=== PATIENT | female | born 1975 | race Caucasian/White ===

== ENCOUNTER 2016-09-24 16:55 | Observation (INO) ==
[2016-09-24] MEDS ORDERED: *HR* HYDROmorphone (PF) 1 MG/ML SYRINGE IVP PRN (17:44)
[2016-09-24] MEDS ORDERED: Ketorolac 15 MG/ML VIAL IVP PRN (17:44)
[2016-09-24] MEDS ORDERED: Naloxone 0.4 MG/ML INJ IVP PRN (17:44)
[2016-09-24] MEDS ORDERED: *HR* Promethazine 25 MG/ML VIAL IVP PRN (17:44)
[2016-09-24] MEDS ORDERED: Ondansetron 4 MG/2 ML VIAL IVP PRN (17:44)
[2016-09-24] MEDS: 0.9 % Sodium Chloride 1,000 ML IVC SCH (19:27)
[2016-09-24] MEDS: *HR* Morphine 2 MG/ML SYRINGE IVP PRN ×2 (19:28→22:25)
--- NOTE | 2016-09-24 21:06 | Urology History & Physical ---
Date of Encounter: 09/24/16 Time of Encounter: 21:04 Assessment and Plan (1) Ureteral stone with hydronephrosis Current Visit: Yes Status: Acute pt states her symptoms are severe and necessitate hospital management and surgical intervention. will plan for ureteroscopic stone extraction in AM if she does not pass the stone. pain control tonight. IVF. ABX. History of Present Illness Chief complaint: right flank pain HPI: Ms. Rodas is a 41 year old female with hx of stone. recent severe flank pain. 5 mm distal stone with hydronephrosis. feels "awful". nausea. no fever. Past Med Surg Social Fam HX - Past Medical History Medical history: fibromyalgia, hypertension, kidney stones, other Psychiatric history: anxiety, bipolar, depression - Past Surgical History Surgical History: , cholecystectomy - Social History Smoking Status: Current every day smoker Smokeless Tobacco Status: No Alcohol use: none Drug use: none Medications and Allergies HYDROcodone/Acet 10/325 mg [[place] 10-325 mg] 1 each PO Q6HR PRN #14 tablet 10/20 [Rx] Dicyclomine [Bentyl] 10 mg PO QID PRN #15 capsule 11/13/15 [Rx] Naproxen [Naprosyn] 500 mg PO BID PRN #14 tablet 11/13/15 [Rx] Ondansetron ODT [Zofran ODT] 4 mg SL Q6HR #10 tab.rapdis 11/13/15 [Rx] Phenazopyridine HCl [Pyridium] 200 mg PO TIDAC #9 tab 12/14/15 [Rx] Sulfamethoxazole/Trimeth DS [Bactrim DS] 1 each PO BID #20 tablet 12/14/15 [Rx] Sulfamethoxazole/Trimeth DS [Bactrim DS] 1 each PO DAILY #10 tablet 08/23/16 [Rx ] cephALEXin [Keflex] 500 mg PO BID #14 capsule 08/23/16 [Rx] Ondansetron ODT [Zofran ODT] 4 mg SL Q6HR PRN #12 tab.rapdis 09/23/16 [Rx] Oxycodone HCl/Acetaminophen [Percocet 5-325 mg Tablet] 1 - 2 each PO QID PRN # 20 tablet 09/23/16 [Rx] Tamsulosin [Flomax] 0.4 mg PO DAILY #5 cap.er.24h 09/23/16 [Rx] Allergies No Known Allergies Allergy (Verified 10/20/15 22:42) Review of Systems - Constitutional fatigue, no chills, no fever(s) - EENT Nose, mouth and throat: no dizziness - Cardiovascular no chest pain, no dyspnea - Respiratory no cough - Gastrointestinal abdominal pain, nausea - Genitourinary Genitourinary: flank pain - Musculoskeletal back pain - Integumentary no erythema - Neurological no confusion - Psychiatric anxiety - Hematologic/Lymphatic no easy bleeding - Allergic/Immunologic no throat swelling Exam Initial Vital Signs Temp Pulse Resp BP Pulse Ox 97.6 F 65 18 142/85 96 09/24/16 17:26 09/24/16 17:26 09/24/16 17:26 09/24/16 17:26 09/24/16 17:26 - General physical appearance Present: well developed, moderate pain - Eyes Present: PERRL - ENT Present: normal nares - Neck Present: no masses - Respiratory Present: normal respiratory effort - Cardiovascular Cardiovascular exam IM: RRR - Abdomen Abdomen: Present: soft - Integumentary Present: no rash - Neurologic Present: normal coordination. Absent: disoriented, confused - Musculoskeletal Present: normal gait Urology Results - Labs All other labs normal.
[2016-09-24] MEDS ORDERED: Nicotine 21 MG PATCH.TD24 TD PRN (21:09)
[2016-09-24] MEDS ORDERED: *HR* HYDROmorphone 2 MG/ML SYRINGE IVP PRN (22:30)
[2016-09-24] MEDS ORDERED: Ketorolac 30 MG/ML VIAL IVP ONE (22:30)
[2016-09-25] MEDS: 0.9 % Sodium Chloride 1,000 ML IVC SCH (05:31)
--- NOTE | 2016-09-25 06:05 | Urology Progress Note ---
Date of Encounter: 09/25/16 Time of Encounter: 06:03 - Assessment and Plan (1) Ureteral stone with hydronephrosis Current Visit: Yes Status: Acute Assessment and plan: because of pain overnight and no stone passed in strained urine - proceed with stone extraction Progress Note Narrative: asleep. severe pain overnight. difficult to control despite toradol and dilaudid. better this AM. last urine strained and no stone passed. Objective Initial Vital Signs Temp Pulse Resp BP Pulse Ox 97.6 F 65 18 142/85 96 09/24/16 17:26 09/24/16 17:26 09/24/16 17:26 09/24/16 17:26 09/24/16 17:26 - General physical appearance Present: well developed (asleep) Consult Discharge Plan - Plan Referrals: Parag Torres MD [Primary Care Provider] -
[2016-09-25] MEDS ORDERED: *HR* Rocuronium Bromide 50 MG/5 ML VIAL ONE (07:26)
[2016-09-25] MEDS ORDERED: *HR* Midazolam HCl 2 MG/2 ML VIAL ONE (07:26)
[2016-09-25] MEDS ORDERED: *HR* Succinylcholine 200 MG/10 ML VIAL IVP ONE (07:26)
[2016-09-25] MEDS ORDERED: Lidocaine -MPF 4% 5 ML AMPUL ONE (07:26)
[2016-09-25] MEDS ORDERED: Lidocaine -MPF 2% 2 ML VIAL ONE (07:26)
[2016-09-25] MEDS ORDERED: *HR* FentaNYL (PF) 100 MCG/2 ML VIAL ONE (07:26)
[2016-09-25] MEDS ORDERED: *HR* Propofol 200 MG/20 ML VIAL IVP ONE (07:27)
[2016-09-25] MEDS ORDERED: Ringers Solution, Lactated 1,000 ML IVC SCH ×3 (07:30→09:21)
[2016-09-25] MEDS ORDERED: Albuterol 2.5 MG/3 ML NEBULIZER ONE (07:30)
--- NOTE | 2016-09-25 07:41 | Anesthesia Evaluation PreOp ---
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: Other (anxiety, depression, fibromyalgia) Other Medical History: Diabetes Type II, Other (morbid obesity BMI 46) Anesthesia History: No Prior Anesthetic Complications, Past Anesthesia (csection , cholecystectomy, hysterectomy) Alcohol Use: none Drug use: none Medications and Allergies HYDROcodone/Acet 10/325 mg [[place] 10-325 mg] 1 each PO Q6HR PRN #14 tablet 10/20 [Rx] Dicyclomine [Bentyl] 10 mg PO QID PRN #15 capsule 11/13/15 [Rx] Naproxen [Naprosyn] 500 mg PO BID PRN #14 tablet 11/13/15 [Rx] Ondansetron ODT [Zofran ODT] 4 mg SL Q6HR #10 tab.rapdis 11/13/15 [Rx] Phenazopyridine HCl [Pyridium] 200 mg PO TIDAC #9 tab 12/14/15 [Rx] Sulfamethoxazole/Trimeth DS [Bactrim DS] 1 each PO BID #20 tablet 12/14/15 [Rx] Sulfamethoxazole/Trimeth DS [Bactrim DS] 1 each PO DAILY #10 tablet 08/23/16 [Rx ] cephALEXin [Keflex] 500 mg PO BID #14 capsule 08/23/16 [Rx] Ondansetron ODT [Zofran ODT] 4 mg SL Q6HR PRN #12 tab.rapdis 09/23/16 [Rx] Oxycodone HCl/Acetaminophen [Percocet 5-325 mg Tablet] 1 - 2 each PO QID PRN # 20 tablet 09/23/16 [Rx] Tamsulosin [Flomax] 0.4 mg PO DAILY #5 cap.er.24h 09/23/16 [Rx] Allergies No Known Allergies Allergy (Verified 10/20/15 22:42) - Meds/Allergy Pre-op Review Medications Reviewed: Yes Allergies Reviewed: Yes Beta Blockers on Current Med List: No Anesthesia Results - Labs Laboratory Tests 04/22/15 09/23/16 09/23/16 08:38 14:10 14:10 WBC 11.9 H Hgb 14.9 Hct 44.9 Plt Count 385 PT 12.6 H INR 1.2 APTT 37.8 H Sodium Potassium Chloride Carbon Dioxide BUN Creatinine Glucose Hemoglobin A1c 5.3 09/23/16 14:10 WBC Hgb Hct Plt Count PT INR APTT Sodium 138 Potassium 3.9 Chloride 108 Carbon Dioxide 20 BUN 15 Creatinine 0.85 Glucose 91 Hemoglobin A1c Anesthesia Exam Vital Signs/O2 Sat, Most Current Temp Pulse Resp BP Pulse Ox 97.8 F 71 18 105/75 94 09/25/16 03:58 09/25/16 03:58 09/25/16 03:58 09/25/16 03:58 09/25/16 03:58 Height: 1.55m Weight: 110kg NPO (# of Hours): >8 Pain Scale: 0 Pain Scale Used: Numeric (1 - 10) - HEENT Pupil (Motor): Pupils equal, EOMI Mallampati: III Teeth: Poor dentition Oral Opening: Greater than 3 - FUTURES TRADER LOC: Oriented FUTURES TRADER Motor: Normal RUE, Normal LUE, Normal RLE, Normal LLE, Normal Face FUTURES TRADER Sensory: Normal: RUE, LUE, RLE, LLE, Face - Cardiac Rhythm: Regular - Pulmonary Breath Sounds: bilateral Clear Respiratory Effort: Symmetrical Anesthesia Assess/Plan ASA Score: 3 (HTN, BMI 46, anxiety, depression) Modified [place] Scale for Level of Consciousness: Cooperative, oriented, and tranquil Anesthetic Plan: General (r/b/a discussed, questions answered, consent obtained) Monitoring Plan: Standard Monitors Recovery Plan: PACU
[2016-09-25] MEDS ORDERED: *HR* Meperidine 25 MG/ML SYRINGE IVP PRN (08:08)
[2016-09-25] MEDS ORDERED: Ondansetron 4 MG/2 ML VIAL IVP ONE (08:08)
[2016-09-25] MEDS ORDERED: *HR* Promethazine 25 MG/ML VIAL IVP PRN ×2 (08:08→09:21)
[2016-09-25] MEDS ORDERED: *HR* HYDROmorphone (PF) 1 MG/ML SYRINGE IVP PRN (08:08)
[2016-09-25] MEDS ORDERED: *HR* Labetalol 100 MG/20 ML MDV IVP PRN (08:08)
[2016-09-25] MEDS ORDERED: Neostigmine Methylsulfate 3 MG/3 ML SYRINGE ONE (08:18)
--- NOTE | 2016-09-25 08:36 | Discharge Summary ---
Date of Encounter: 09/25/16 Time of Encounter: 08:32 - Discharge Diagnosis (1) Ureteral stone with hydronephrosis Priority: Primary Status: Resolved Comments: s/p stone extraction - Discharge Medications Prescriptions: HYDROcodone/Acet 10/325 mg [[place] 10-325 mg] 1 each PO Q6HR PRN #15 tablet PRN Reason: Pain Phenazopyridine HCl [Pyridium] 200 mg PO TIDAC #15 tab Home Medications: Dicyclomine [Bentyl] 10 mg PO QID PRN #15 capsule 11/13/15 [Rx] Naproxen [Naprosyn] 500 mg PO BID PRN #14 tablet 11/13/15 [Rx] HYDROcodone/Acet 10/325 mg [[place] 10-325 mg] 1 each PO Q6HR PRN #15 tablet 09/25 [Rx] Phenazopyridine HCl [Pyridium] 200 mg PO TIDAC #15 tab 09/25/16 [Rx] Allergies/Adverse Reactions: Allergies No Known Allergies Allergy (Verified 10/20/15 22:42) Date of admission: 09/24/16 17:01 Primary care physician: Parag Torres Discharging clinician: Parag Torres Anticipated date of discharge: 09/25/16 - Patient Status Disposition: Home, Self-Care Condition: Good Functional capacity at discharge: independent ambulation Overall status at discharge: patient is progressing back to baseline - Discharge Instructions Follow Up With: Parag Torres MD [Primary Care Provider] - (Patient can remove stent at home on Tuesday by pulling on the string orcome to the urology office for removal. If stent is removed at home,follow-up in 2-4 weeks) Additional Instructions: Expect stent discomfort including urgency, frequency, burning on urination, blood in the urine, mild flank pain. Call if excessive. Call if fever over 101 Patient can remove stent at home on Tuesday by pulling on the string until the entire or come to the urology office Tuesday for removal. Expect some increased flank discomfort after the stent is removed for the first 12-24 hours. - Diet and Activity Activity: increase activity as tolerated Diet: advance to your usual diet - Hospital Course Hospital course: Ms. Rodas is a 41 year old female - Time Spent with Patient Total time spent providing and/or coordinating discharge services: Less than 30 minutes Exam Initial Vital Signs Temp Pulse Resp BP Pulse Ox 97.6 F 65 18 142/85 96 09/24/16 17:26 09/24/16 17:26 09/24/16 17:26 09/24/16 17:26 09/24/16 17:26 - General physical appearance Present: well developed, no distress
--- NOTE | 2016-09-25 08:42 | Operative Note ---
Date of procedure: 09/25/16 Pre-op diagnosis: right ureteral stone Post-op diagnosis: same Procedure: right ureteroscopic stone extraction Right retrograde pyelogram Right ureteral stent placement Anesthesia: GETA Surgeon: Parag Torres Estimated blood loss (cc): 0 Specimen: stone Condition: stable Disposition: PACU Procedure in Detail: PROCEDURE IN DETAIL: Patient was taken back to the operating room, positioned supine on the operating table. Anesthesia was applied without complication. They were moved into dorsal lithotomy. Careful attention was maintained to cushion all pressure points for patient's safety. They were prepped and draped in sterile fashion. Time-out was performed with the proper patient and procedure. A 21-Tunis[place] rigid cystoscope was inserted into the bladder without difficulty. Systematic examination of bladder revealed no abnormalities. I had difficulty cannulating the right UO. At that point, a zip wire was placed through the 5-Tunisian and confirmed in the ureter with fluoroscopy. the wire was removed after I advanced the 5 lao. no filling defect was seen on retrograde but I suspected a distal stone. An 8-10 dilator was then placed over the zip wire to passively dilate the ureteral orifice. A semi-rigid ureteroscope was carefully inserted into the bladder and guided into the ureteral oriface. The stone was encountered at the UVJ. I was able to basket extract the stone without laser litho. All stone in the ureter was removed. A 6 x 26 ureteral stent was placed over the zip wire under fluoroscopy without complication. The bladder was drained. They were collected and sent for stone analysis. The string was left attached to the stent and secured to the patient for easy removal in approximately 72 hours
--- NOTE | 2016-09-25 09:10 | Anesthesia Evaluation Post Op ---
Date of Encounter: 09/25/16 Time of Encounter: 09:09 - Vital Signs Vital Signs: Vital Signs/O2 Sat, Most Current Temp Pulse Resp BP Pulse Ox 97.4 F L 53 18 135/96 97 09/25/16 09:04 09/25/16 09:04 09/25/16 09:04 09/25/16 09:04 09/25/16 09:04 - Lungs Lungs: Clear Ascult./Percussion - Airway Airway: Non-obstructed - Cardiovascular Regular Rate - Mental Status Mental Status: Alert & Oriented, Answers Appropriately - Pain Pain Scale: 0 Pain Scale used: Numeric (1 - 10) - Nausea Vomiting Nausea Vomiting: Not Present - Hydration Hydration: Ice chips - Discharge PostOp Status: Transfer Patient to floor Attestation: I have assessed this patient and find they meet discharge criteria.
[2016-09-25] MEDS ORDERED: *HR* HYDROmorphone 2 MG/ML SYRINGE IVP PRN ×2 (09:21→15:07)
[2016-09-25] MEDS ORDERED: Nicotine 21 MG PATCH.TD24 TD PRN (09:21)
[2016-09-25] MEDS ORDERED: 0.9 % Sodium Chloride 1,000 ML IVC SCH (09:21)
[2016-09-25] MEDS ORDERED: *HR* Morphine 2 MG/ML SYRINGE IVP PRN ×2 (09:21→15:07)
[2016-09-25] MEDS ORDERED: Ketorolac 15 MG/ML VIAL IVP PRN (09:21)
[2016-09-25] MEDS ORDERED: Ondansetron 4 MG/2 ML VIAL IVP PRN (09:21)
[2016-09-25] MEDS ORDERED: Naloxone 0.4 MG/ML INJ IVP PRN (09:21)
[2016-09-25 11:44] VITALS: BP 117/75
[2016-09-25] MEDS ORDERED: *HR* HYDROcodone/Acet 10/325 mg TABLET PO PRN (15:01)
== END 2016-09-25 15:30 | disposition home or self-care (01) ==
LOC: 3ANU
PROVIDERS: ADMIT Urology; ATTEND Urology

== ENCOUNTER 2018-01-22 16:30 | Observation (INO) ==
[2018-01-22] MEDS ORDERED: Aspirin 81 MG TAB.CHEW PO ONE (17:02)
[2018-01-22] MEDS ORDERED: GI Cocktail 40 ML EACH PO ONE (17:07)
[2018-01-22 17:38] LABS: Basophils # 0.1 K/mcL (0.0-0.2); Basophils % 0.6 %; Eosinophils # 0.6 K/mcL (0.0-0.6); Eosinophils % 5.6 %; Hematocrit 45.6 % (35.3-44.9); Immature Granulocytes % 0.3 % (0-4); Lymphocytes # 4.1 K/mcL (0.6-4.6); Mean Corpuscular HGB Conc 32.9 g/dL (31.6-35.5); Mean Corpuscular Hemoglobin 29.6 pg (28.0-33.3); Mean Corpuscular Volume 90.1 fL (83.0-100.0); Mean Platelet Volume 11.5 fL (9.4-12.4); Monocytes # 0.7 K/mcL (0.0-1.3); Monocytes % 6.1 %; Neutrophils # 5.8 K/mcL (1.6-8.9); Platelet Count 341 K/mcL (140-400); Red Blood Count 5.06 M/mcL (3.82-4.97); Red Cell Distribution Width 13.4 % (11.5-14.5); Segmented Neutrophils % 51.4 %
[2018-01-22 17:48] LABS: INR 1.1; Prothrombin Time 12.5 Seconds (9.4-12.1)
[2018-01-22 17:51] LABS: BUN/Creatinine Ratio 18 (6-26); Blood Urea Nitrogen 14 mg/dL (6-20); Calcium 9.3 mg/dL (8.6-10.3); Carbon Dioxide 24 mEq/L (23-29); Chloride 107 mEq/L (98-107); Glucose 87 mg/dL (70-105); Osmolality,Calculated 284 (280-300); Potassium 3.8 mEq/L (3.5-5.1); Sodium 137 mEq/L (136-145); eGFR For Non-African Americans > 60 (> 60)
[2018-01-22] MEDS: Nitroglycerin 0.4 MG TAB.SUBL SL ONE ×3 (17:51→18:09)
[2018-01-22 17:52] LABS: Troponin I < 0.03 ng/mL (< 0.04)
--- NOTE | 2018-01-22 18:00 | Emergency Department Note ---
Disposition Clinical Impression: Chest pain Qualifiers: Chest pain type: unspecified Qualified Code(s): R07.9 - Chest pain, unspecified Disposition: Admitted As Inpatient Condition: Good Instructions: Chest Pain (ED) Reasons to Return/Additional Instructions: Please follow up with your primary care provider in 24-48 hours. I have provided information to the [facility]. Please return to the emergency department if you have any worsening of your symptoms including worsening of her chest pain, shortness of breath, changes in mentation or any other symptoms that may be concerning 2. Please keep your scheduled stress test appointment in 4 days. Referrals: Cedrick Armijo MD [Primary Care Provider] - Time of Disposition: 18:38 General Adult HPI - General Stated complaint: Chest Pain Time Seen by Provider: 01/22/18 16:46 Source: patient Mode of arrival: ambulatory Limitations: no limitations Nursing Notes Reviewed: Yes Vital Signs Reviewed: Yes - History of Present Illness HPI Narrative: Patient is a 42-year-old female since emergency Department with chest pain. Patient states that is located in the left center of her chest. Patient states that she is having pain in bilateral arms and into her neck. Patient also states that she has associated shortness of breath, diaphoresis and nausea. Patient states that she is seen for this approximately 1-2 weeks ago by her primary care physician and was told that she may have an abnormality on her EKG and was scheduled for outpatient stress test. The stress test scheduled for approximately 4 days from now. Patient states that she has started taking 81 mg aspirin. Patient denies any other symptoms at this time. - Related Data Home Medications Medication Instructions Recorded Confirmed ALPRAZolam [Xanax 1 MG Tablet] 1 mg PO TID PRN 09/25/16 09/25/16 Previous Rx's Medication Instructions Recorded HYDROcodone/Acet 10/325 mg [[place] 1 each PO Q6HR PRN #15 tablet 09/25/16 10-325 mg] Phenazopyridine HCl [Pyridium] 200 mg PO TIDAC #15 tab 09/25/16 Ondansetron ODT [Zofran ODT] 4 mg SL Q6HR #10 tab.rapdis 11/30/16 Allergies Allergy/AdvReac Type Severity Reaction Status Date / Time No Known Allergies Allergy Verified 11/30/16 09:49 All systems ED: reviewed and negative except as stated. Cardiovascular: Reports: chest pain Respiratory: Reports: dyspnea Gastrointestinal: Reports: nausea. 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 Absent: respiratory distress, wheezes - Cardiovascular Cardiovascular exam: Present: regular rate, normal rhythm, normal heart sounds, +S1, +S2 - Abdominal Exam Abdominal exam: Present: soft, Non-Tender, normal bowel sounds - Neurological Exam Neurological exam: Present: alert, oriented X3 - Psychiatric Psychiatric exam: Present: normal affect, normal mood - Skin Skin exam: Present: warm, dry, intact Course Vital Signs Temperature 98.9 F 01/22/18 17:57 Pulse Rate 62 01/22/18 17:57 Respiratory Rate 18 01/22/18 17:57 Blood Pressure 153/100 01/22/18 17:57 O2 Sat by Pulse Oximetry 97 01/22/18 17:57 Temperature 98.9 F 01/22/18 17:57 Pulse Rate 83 01/22/18 18:09 Respiratory Rate 18 01/22/18 18:09 Blood Pressure 128/96 01/22/18 18:09 O2 Sat by Pulse Oximetry 97 01/22/18 18:09 Oxygen Delivery Oxygen Delivery Room Air Medical Decision Making - MDM Narrative Medical decision making narrative: The patient presenting to the emergency department with chest pain there is concern for possible cardiac involvement due to the patient stating that she had associated shortness of breath, diaphoresis and nausea. A basic laboratory testing and EKG and chest x-ray be obtained. Her EKG did not show any acute ischemic changes at this time. Patient does have an elevated white count of 11.2 however this is a nonspecific finding. The remainder of her laboratory testing is unremarkable. Patient states that she had resolution of her chest pain with one nitroglycerin. Patient states that the GI cocktail did not provide any relief. After discussion with the patient she will he admitted to the hospital for further evaluation and management of her chest pain symptoms. Called and spoke with Dr. Bailey and she has accepted the patient to their service. Patient be admitted to the hospital this time for further evaluation and management. - Medical Records Medical records reviewed: Yes I reviewed the patient's medical records. - Lab Data Lab results reviewed: Yes I reviewed the patient's lab results. Result diagrams: 01/22/18 17:18 01/22/18 17:18 Lab Results 01/22/18 01/22/18 01/22/18 Range/Units 17:18 :18 17:18 WBC 11.2 H (4.3-11.1) K/mcL RBC 5.06 H (3.82-4.97) M/mcL Hgb 15.0 (11.5-15.4) g/dL Hct 45.6 H (35.3-44.9) % MCV 90.1 (83.0-100.0) fL MCH 29.6 (28.0-33.3) pg MCHC 32.9 (31.6-35.5) g/dL RDW 13.4 (11.5-14.5) % Plt Count 341 (140-400) K/mcL MPV 11.5 (9.4-12.4) fL Immature Gran % 0.3 (0-4) % Seg Neutrophils % 51.4 % Lymphocytes % 36.0 % Monocytes % 6.1 % Eosinophils % 5.6 % Basophils % 0.6 % Neutrophils # 5.8 (1.6-8.9) K/mcL Lymphocytes # 4.1 (0.6-4.6) K/mcL Monocytes # 0.7 (0.0-1.3) K/mcL Eosinophils # 0.6 (0.0-0.6) K/mcL Basophils # 0.1 (0.0-0.2) K/mcL PT 12.5 H (9.4-12.1) Seconds INR 1.1 Sodium 137 (136-145) mEq/L Potassium 3.8 (3.5-5.1) mEq/L Chloride 107 (98-107) mEq/L Carbon Dioxide 24 (23-29) mEq/L BUN 14 (6-20) mg/dL Creatinine 0.80 (0.60-1.20) mg/dL Est GFR ( Amer) > 60 (> 60) Est GFR (Non-Af Amer) > 60 (> 60) BUN/Creatinine Ratio 18 (6-26) Glucose 87 (70-105) mg/dL Calculated Osmolality 284 (280-300) Calcium 9.3 (8.6-10.3) mg/dL Troponin I < 0.03 (< 0.04) ng/mL - Radiology Data Radiology results reviewed: Yes I reviewed the patient's radiology results. Chest X-Ray 01/22/18 17:02 IMPRESSION: No acute findings. D/ / Yony Morrissey MD / Yony Morrissey MD Interpreting Provider: Yony Morrissey MD - EKG Data EKG #1 EKG attestation: Yes I reviewed and interpreted this EKG. EKG results narrative: EKG shows a sinus rhythm at a rate of 59 beats from it, OK interval of 137, QRS duration of 110, QTc of 420 with a normal axis. There is no evidence of STEMI and EKG. This is compared to previous EKG on 12/14/15 which showed a sinus rhythm at a rate of 75 bpm. Attestation Statement - Attestation Attestation: I examined this patient and my medical decision-making was reviewed with the Resident Physician, Dr. Torres. I agree with the documented findings, disposition and treatment plan as described except to the extent set forth below. Patient is a 42-year-old white female smoker with a history of hypertension who presents to emergency permit today with complaints of substernal left-sided chest pain that radiates into the bilateral arms and neck associated with shortness of breath nausea and diaphoresis. There is no association with exertion but patient states that she had her last episode with rest and has been experiencing them intermittently with no distinct aggravating factors for the past few weeks. Patient has had no prior cardiac testing or evaluation in the past. I agree with patient's physical exam findings as documented. Vital signs are stable. G shows a normal sinus rhythm without acute ischemia. Patient had let full lab evaluation including chest x-ray and was given aspirin and nitroglycerin with relief of her symptoms. Patient's initial troponin is within normal limits. Patient is chest pain-free at this time with stable vital signs. Case was discussed with hospitalist and patient will be admitted for further evaluation.
[2018-01-22] MEDS ORDERED: Nitroglycerin 1 INCH/GM PACKET TP ONE (19:10)
--- NOTE | 2018-01-22 19:26 | Internal Med History&Physical ---
Date of Encounter: 01/23/18 Time of Encounter: 19:26 Internal Medicine - H&P: HPI Chief complaint: chest pain Admitted From: Emergency Dept Plans for Post Hospital Care: Home History of present illness: Ms. 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 Her chest pain became worse today with shortness of breath, nausea, near syncope, confusion and palpitations - then right side of face camped with severe pain that resolved. Last week she has PCP who said abnormality on EKG and schedule stress test due in 4 days. In ED, vitals stable. Troponins negative and no acute changes on EKG. Given GI cocktail and nitroglycerin with out improvement. Right neck and shoulder achy pain radiate into arms with coldness, numbness and tingling in bilateral hands - started 4 weeks ago. Chest pain sharp started 2 weeks ago and became worse pressure after hit her with elbow with moving furniture one week ago. Daily intractable headaches with lightheaded, vertigo , and blurred vision. Increased fatigue. 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 PMHx includes bipolar disorder follow Dr Nury at [place], fibromalagia, and hypertension. Smokes half pack for 10 years. FMhx mother of AL at 50. Past Med Surg Social Fam HX - Past Medical History Medical history: fibromyalgia, hypertension, kidney stones, other Additional medical history: Narciso's. MME 1. ovarian cysts Psychiatric history: anxiety, bipolar, depression - Past Surgical History Surgical History: , cholecystectomy Additional surgical history: kidney stones - Social History Smoking Status: Current every day smoker Smokeless Tobacco Status: No Alcohol use: none Drug use: none - Family History Mother Age at : 50 Cause of : "heart stopped" Hx Family Cardiac Disorders: Yes Internal Medicine - H&P: Meds ALPRAZolam [Xanax 1 MG Tablet] 1 mg PO TID PRN 09/25/16 [History] HYDROcodone/Acet 10/325 mg [[place] 10-325 mg] 1 each PO Q6HR PRN #15 tablet 09/25 [Rx] Phenazopyridine HCl [Pyridium] 200 mg PO TIDAC #15 tab 09/25/16 [Rx] Ondansetron ODT [Zofran ODT] 4 mg SL Q6HR #10 tab.rapdis 11/30/16 [Rx] 3 Allergy/AdvReac Type Severity Reaction Status Date / Time No Known Allergies Allergy Verified 11/30/16 09:49 All Systems PM: A 10-system review of systems was performed and is negative for pertinent findings except as documented above in the HPI. - Constitutional Constitutional: fatigue, weakness, no chills, no fever(s), no falls - EENT Eyes: blurry vision, change in vision, no tunnel vision - Cardiovascular Cardiovascular ROS IM: chest pain, dyspnea on exertion, lightheadedness, palpitations, no diaphoresis, no edema - Respiratory Respiratory: cough, dyspnea on exertion, no wheezing - Gastrointestinal Gastrointestinal: nausea, no abdominal pain, no diarrhea, no vomiting - Genitourinary Genitourinary: urinary frequency, no dysuria, no urinary incontinence - Musculoskeletal Musculoskeletal ROS IM: as per HPI, arthralgias, back pain, muscle cramps, muscle weakness, myalgias, neck pain, stiffness, tingling - Integumentary Integumentary IM: no erythema, no rash - Neurological Neurological ROS: confusion, dizziness, headache(s), paresthesias, tingling, vertigo, weakness - Psychiatric Psychiatric: anxiety, depression - Endocrine Endocrine IM: no polyuria - Constitutional Vitals: Temp Pulse Resp BP Pulse Ox 98.9 F 83 18 128/96 97 01/22/18 17:57 01/22/18 18:09 01/22/18 18:09 01/22/18 18:09 01/22/18 18:09 General appearance: Present: cooperative, mild distress, A&O X 3, obese, answers questions appropriately Exam: tearful due to pain - Head Head exam: Present: atraumatic, normocephalic - Eye Eye exam: Present: EOMI, PERRL - ENT ENT exam: Present: mucous membranes moist, normal oropharynx - Respiratory Respiratory exam: Present: CTAB. Absent: rales, wheezes - Cardiovascular Cardiovascular exam: Present: RRR. Absent: gallop, rubs Additional comments: very tender to palpation - GI/Abdominal GI/Abdominal exam: Present: distended, normal bowel sounds, soft. Absent: tenderness - Extremities Exam Extremities exam: Present: full ROM, radial pulses palpable and symmetrical. Absent: pedal edema, tenderness - Neurological Exam Neurological exam: Present: CN II-XII intact, motor sensory deficit, oriented X3 , no focal deficits, strengths equal and symetr throughout. Absent: pronater drift, facial droop, speech deficit Additional comments: decrease sensation to right face, right upper extremity and right lower extremity - Psychiatric Psychiatric exam: Present: agitated, anxious - Skin Skin exam: Present: dry, normal color. Absent: erythema Internal Med - H&P Results - Labs CBC & Chem 7: 01/22/18 17:18 01/22/18 17:18 - Assessment and plan (1) Chest pain Current Visit: Yes Status: Acute Assessment and plan: EKG no acute in ED but changes at PCP office - trend troponin < 0.03 - Echo - Stress test (2) Pituitary adenoma Current Visit: Yes Status: Acute Assessment and plan: concern for relapse of pituitary tumor given symptoms and history of noncompliance. Also given transient facial symptoms consider TIA or bleed. - CT head no acute changes but post surgical changes better evaluated by MRI. - MRI pituitary w and w/o contrast tomorrow Patient prefers to stay at [facility] to be close to family even though her neurosurgeon is located at [facility] (3) Neck pain on right side Current Visit: Yes Status: Acute Assessment and plan: CT CV with out abnormality, consider referred pain pattern - pain control with lidocaine patch, tramadol for moderate, norco for severe (4) MEN 1 syndrome Current Visit: Yes Status: Acute Assessment and plan: Narciso syndrome as results- has been noncompliant with mediation for over one year. - consult endocrine about restarting signifor (pasireotide) - consider ordering hormone and parathyroid labs (5) Hypertension Current Visit: Yes Status: Acute Assessment and plan: continue Lisinopril once confirmed Qualifiers: Hypertension type: essential hypertension Qualified Code(s): I10 - Essential (primary) hypertension (6) Bipolar 1 disorder Current Visit: Yes Status: Acute Assessment and plan: recognize that anxiety can often present as paresthesias but her history warrants work up of symptoms - home medications not confirmed (7) Fibromyalgia Current Visit: Yes Status: Acute Assessment and plan: possible explanation of right sided pain (8) Headache Current Visit: Yes Status: Acute Assessment and plan: Daily intractable headaches possibly due to tumor or post surgical changes - IVF 1 liter -Benadryl PO -IV phenegran Qualifiers: Headache type: unspecified Intractability: intractable Qualified Code(s) : R51 - Headache (9) DVT prophylaxis Current Visit: Yes Status: Acute Assessment and plan: heparin sq - Time Spent With Patient Total time spent is greater than 50% in coordination of care (as documented) at patient's floor/unit and/or counseling patient:
[2018-01-22] MEDS ORDERED: Acetaminophen 325 MG TABLET PO PRN (20:09)
[2018-01-22] MEDS ORDERED: Naloxone 0.4 MG/ML INJ IVP PRN (20:09)
[2018-01-22] MEDS ORDERED: Ondansetron ODT 4 MG TAB.RAPDIS SL PRN (20:09)
[2018-01-22] MEDS ORDERED: Gadolinium Contrast Agent (WT Based) IV PRN ×3 (21:07→22:21)
[2018-01-22] MEDS ORDERED: *HR* Promethazine 25 MG/ML VIAL IVP PRN (21:35)
[2018-01-22] MEDS: 0.9 % Sodium Chloride 1,000 ML IVC SCH (21:56)
[2018-01-22] MEDS ORDERED: *HR* OxyCODONE/APAP 5/325 TABLET PO PRN (22:35)
[2018-01-23] MEDS: *HR* OxyCODONE/APAP 5/325 TABLET PO PRN ×4 (03:00→20:51)
[2018-01-23 05:10] LABS: Basophils # 0.1 K/mcL (0.0-0.2); Basophils % 0.8 %; Eosinophils # 0.7 K/mcL (0.0-0.6); Eosinophils % 5.9 %; Hematocrit 41.1 % (35.3-44.9); Immature Granulocytes % 0.3 % (0-4); Lymphocytes # 3.8 K/mcL (0.6-4.6); Lymphocytes % 34.4 %; Mean Corpuscular HGB Conc 32.1 g/dL (31.6-35.5); Mean Corpuscular Hemoglobin 28.7 pg (28.0-33.3); Mean Corpuscular Volume 89.3 fL (83.0-100.0); Mean Platelet Volume 11.3 fL (9.4-12.4); Monocytes # 0.7 K/mcL (0.0-1.3); Monocytes % 6.5 %; Neutrophils # 5.8 K/mcL (1.6-8.9); Platelet Count 332 K/mcL (140-400); Red Cell Distribution Width 13.4 % (11.5-14.5); Segmented Neutrophils % 52.1 %
[2018-01-23 05:22] LABS: Hemoglobin 13.2 g/dL (11.5-15.4)
[2018-01-23 05:30] LABS: BUN/Creatinine Ratio 18 (6-26); Blood Urea Nitrogen 14 mg/dL (6-20); Calcium 8.6 mg/dL (8.6-10.3); Carbon Dioxide 24 mEq/L (23-29); Chloride 109 mEq/L (98-107); Glucose 95 mg/dL (70-105); Osmolality,Calculated 288 (280-300); Potassium 3.9 mEq/L (3.5-5.1); Sodium 139 mEq/L (136-145); eGFR For Non-African Americans > 60 (> 60)
[2018-01-23] MEDS: *HR* Heparin 5,000 UNIT/ML VIAL SQ SCH ×3 (05:51→20:48)
[2018-01-23] MEDS: 0.9 % Sodium Chloride 1,000 ML IVC SCH ×3 (08:57→21:52)
[2018-01-23] MEDS ORDERED: Ketorolac 15 MG/ML VIAL IVP PRN (12:01)
--- NOTE | 2018-01-23 13:47 | Discharge Summary ---
Orders not resulted at time of discharge: Pending orders 01/22/18 21:31 EV echocardiogram Routine Date of Encounter: 01/23/18 Time of Encounter: 09:00 Hospital course: Ms. Rodas is a 42 year old female with a past medical history of Bipolar disorder, MEN1, pituitary adenomas, was admitted to the floor because of chest pain. Her initial workup in the ER was negative for ST-T changes, her Trops were negative but had an elevated WBC (11.2). He also endorses a gradual onset of blurry vision, non-radiating frontal headache, shoulder and neck pain that started almost a month ago. CT of her cervical spine, head and MRI of the brain was negative for any structural abnormalities. Patient has a history of multiple surgeries secondary to pituitary adenomas. Her last trans-sphenoidal surgery was [address] Fonseca at [facility]. Patient endorses that she sees him every year and gets an MRI of her brain. Her last MRI was in February 2017 and was negative for any intracranial lesions. The course of her hospital stay was very unremarkable. Patient was given Toradol for pain control. She underwent a stress test this morning to rule out any ischemic causes of her chest pain and is also getting an Echo to rule out any structural /valvular abnormalities - Time Spent with Patient Total time spent providing and/or coordinating discharge services: - Discharge Medications Allergies/Adverse Reactions: 3 Allergy/AdvReac Type Severity Reaction Status Date / Time No Known Allergies Allergy Verified 11/30/16 09:49 Date of admission: 01/22/18 18:59 Primary care physician: Cedrick Armijo MD - Constitutional Vitals: Temp Pulse Resp BP Pulse Ox 97.9 F 53 14 118/78 95 01/23/18 12:25 01/23/18 12:25 01/23/18 12:25 01/23/18 12:25 01/23/18 12:25 General appearance: Present: cooperative, mild distress, A&O X 3, obese, answers questions appropriately Exam: tearful due to pain - Patient Status Condition: Good - Discharge Instructions Follow Up With: Cedrick Armijo MD [Primary Care Provider] - Forms: ED Satisfaction Letter
--- NOTE | 2018-01-23 14:04 | Internal Med Progress Note ---
<Piedad Longoria - Last Filed: 01/23/18 15:50> Hospitalist Progress Note - Encounter Date of Encounter: 01/23/18 Time of Encounter: 15:50 - Exam Vitals: Temp Pulse Resp BP Pulse Ox 97.9 F 53 14 118/78 95 01/23/18 12:25 01/23/18 12:25 01/23/18 12:25 01/23/18 12:25 01/23/18 12:25 - Time Spent with Patient Total time spent is greater than 50% in coordination of care (as documented) at patient's floor/unit and/or counseling patient: Internal Medicine: Result - Labs CBC & Chem 7: 01/23/18 04:43 01/23/18 04:43 Labs: Short CBC 01/23/18 Range/Units 04:43 WBC 11.0 (4.3-11.1) K/mcL Hgb 13.2 D (11.5-15.4) g/dL Hct 41.1 (35.3-44.9) % Plt Count 332 (140-400) K/mcL Neutrophils # 5.8 (1.6-8.9) K/mcL BMP 01/23/18 04:43 Sodium 139 Potassium 3.9 Chloride 109 H Carbon Dioxide 24 BUN 14 Creatinine 0.76 Glucose 95 Calcium 8.6 Cardiac Enzymes 01/22/18 01/23/18 Range/Units 23:10 04:43 Troponin I < 0.03 < 0.03 (< 0.04) ng/mL - ABG Interpretation ABG results: PT/INR, D-dimer PT 12.5 Seconds (9.4-12.1) H 01/22/18 17:18 - Impressions Impressions Cervical Spine CT 01/22/18 22:01 IMPRESSION: No acute abnormality of the cervical spine. D/ / Norberto Preciado MD / Norberto Preciado MD Interpreting Provider: Norberto Preciado MD Head CT 01/22/18 22:01 IMPRESSION: No acute intracranial abnormality. Postsurgical changes of transsphenoidal pituitary surgery. This area may be further assessed with dynamic contrast-enhanced pituitary protocol MRI at the direction of the patient's neurosurgeon, if indicated. Frontoethmoidal sinusitis. D/ / Lokesh Field / Lokesh Field Interpreting Provider: Lokesh Field Head MRI 01/23/18 00:21 IMPRESSION: 1. Motion partially limits evaluation. 2. No acute intracranial abnormality. No acute infarct. 3. Postsurgical changes are seen in the region of the sella with volume loss within the right aspect of the sella. No obvious sellar or suprasellar mass. 4. Scattered mucosal thickening of the paranasal sinuses. D/ / Yonathan Rabago MD / Yonathan Rabago MD Interpreting Provider: Yonathan Rabago MD Consult Discharge Plan - Plan Referrals: Cedrick Armijo MD [Primary Care Provider] - - Attending Attestation I saw evaluated and examined this patient and my medical decision-making was reviewed with the Resident Physician, Celestine Silva. I agree with the documented findings, disposition and treatment plan as described except to any changes set forth below. We independently had [id number] contact with the patient. Patient underwent initial part of her stress test earlier this morning. She continues to have right-sided neck pain and numbness and pain radiating down her right arm. She also has been having intermittent chest pain although this has improved since she was hospitalized. She denies any cough or shortness of breath. No dizziness or blurred vision. No palpitations. On exam, patient does have tenderness in her right neck region. She has decreased sensation in her right upper extremity with slightly decreased strength rn clinical strength in her right hand. Rest of the extremities have normal sensation and strength. Heart sounds are normal. Breath sounds are normal. Chest pain: Atypical. Continue stress test. Second part tomorrow. Troponins are negative. Right-sided neck pain and right upper extremity numbness: Etiology uncertain. CT of the cervical spine shows no acute abnormality. She may be having 2 different problems. She may have muscle spasm/torticollis of her cervical spine based on presence of spasm and neck tenderness in her right neck region. Will treat empirically with Flexeril or Robaxin. Will consult neurology to evaluate for numbness and mild weakness involving right upper extremity. MRI of the brain did not show any acute process besides postsurgical changes in the region of the sella. Anxiety/bipolar disorder: Continue home medications. MEN1 Syndrome: Patient has been noncompliant with her medications. She will need to follow with endocrinology after discharge so that this can be further managed. We will check thyroid hormone levels and cortisol levels. <Celestine Silva - Last Filed: 01/23/18 17:41> Hospitalist Progress Note - Encounter Date of Encounter: 01/23/18 Time of Encounter: 09:00 - Subjective Interval History: Ms. Rodas is a 42 year old female with a past medical history of Bipolar disorder, MEN1, pituitary adenomas, was admitted to the floor because of chest pain. Her initial workup in the ER was negative for ST-T changes, her Trops were negative but had an elevated WBC (11.2). PAtient endorses no relationship of her chest pain with meals. She also endorses a gradual onset of blurry vision , non-radiating frontal headache, and dull non -radiating shoulder and neck pain that started almost a month ago. CT of her cervical spine, head and MRI of the brain was negative for any structural abnormalities. Patient has a history of multiple surgeries secondary to pituitary adenomas. Her last trans- sphenoidal surgery was [address] Fonseca at [facility]. Patient endorses that she sees DR. Fonseca every year and gets an MRI of her brain. Her last MRI was in February 2017 and was negative for any intracranial lesions. Patient is currently on IV Toradol for pain control and is awaiting results of her stress test this morning to rule out any ischemic causes of her chest pain. Her Echo is pending . - Exam Vitals: Temp Pulse Resp BP Pulse Ox 97.9 F 53 14 118/78 95 01/23/18 12:25 01/23/18 12:25 01/23/18 12:25 01/23/18 12:25 01/23/18 12:25 Exam: General: Conversant, mild distress secondary to her pain HEENT: Atraumatic, Normocephaly, Mucus Membranes Moist Neck: No JVD, Normal carotid pulses, right sided neck tender to palpation Cardiac: Reg Rate and Rhythm, Normal S1 and S2, No Murmur Lungs: Normal Breath Sounds, No Wheeze, Rales, Rhonchi Neuro: Alert and responsive, No focal deficits noted Abdomen: Soft, Non-Tender Skin: No rashes noted on visualized skin Musculoskeletal: No Chest Wall Tenderness Extremities: No Clubbing, No Cyanosis, No Edema, Normal Pulses - Assessment and Plan (1) Chest pain Current Visit: Yes Status: Acute Assessment and Plan: - Etiology currently unknown. Her initial workup in the ER was ST-T changes, and a her troponin negative. Patient does have a family history of [place] (mother) , unlikely GERD because the patient endorses no relationship with meals, afebrile and julien's sign negative. - stress test and echocardiogram results are pending. -Cardiac diet, nitroglycerine PRN, toradol for pain control (2) MEN 1 syndrome Current Visit: Yes Status: Acute Assessment and Plan: - Has a history of MEN1 syndrome. She has had multiple transsphenoidal pituitary resections in the past, the most recent one being 5 years ago. -Her head CT and brain MRI was for any intracranial lesions, mass or any midline shift. - follow up with candy dipper hand as an outpatient. (3) Neck pain on right side Current Visit: Yes Status: Acute Assessment and Plan: - etiology currently unclear. patient's CT Cervical spine was unremarkable. less likely fibromyalgia like symptoms because the muscle pain is not widespread although she does have fatigue and PIMENTEL - patient endorses unilateral R sided non-radiating neck pain, no tingling or numbness in the extremities. - MRI cervical spine pending, Robaxin and Toradol for pain control, neurology on board. (4) Bipolar 1 disorder Current Visit: Yes Status: Acute Assessment and Plan: - hx of bipolar disorder - currently on her home medication Lamictel 25 mg (5) Anxiety Current Visit: Yes Status: Acute Assessment and Plan: - Has a Hx of anxiety - currently on hydroxyzine 25mg PO TID - continue to monitor - Time Spent with Patient Total time spent is greater than 50% in coordination of care (as documented) at patient's floor/unit and/or counseling patient: Internal Medicine: Result - Labs CBC & Chem 7: 01/23/18 04:43 01/23/18 04:43 Labs: Short CBC 09/10/18 Range/Units 04:43 WBC 11.0 (4.3-11.1) K/mcL Hgb 13.2 D (11.5-15.4) g/dL Hct 41.1 (35.3-44.9) % Plt Count 332 (140-400) K/mcL Neutrophils # 5.8 (1.6-8.9) K/mcL BMP 01/23/18 04:43 Sodium 139 Potassium 3.9 Chloride 109 H Carbon Dioxide 24 BUN 14 Creatinine 0.76 Glucose 95 Calcium 8.6 Cardiac Enzymes 01/22/18 01/23/18 Range/Units 23:10 04:43 Troponin I < 0.03 < 0.03 (< 0.04) ng/mL - ABG Interpretation ABG results: PT/INR, D-dimer PT 12.5 Seconds (9.4-12.1) H 01/22/18 17:18 - Impressions Impressions Cervical Spine CT 01/22/18 22:01 IMPRESSION: No acute abnormality of the cervical spine. D/ / Norberto Preciado MD / Norberto Preciado MD Interpreting Provider: Norberto Preciado MD Head CT 01/22/18 22:01 IMPRESSION: No acute intracranial abnormality. Postsurgical changes of transsphenoidal pituitary surgery. This area may be further assessed with dynamic contrast-enhanced pituitary protocol MRI at the direction of the patient's neurosurgeon, if indicated. Frontoethmoidal sinusitis. D/ / Lokesh Field / Lokesh Field Interpreting Provider: Lokesh Field Head MRI 01/23/18 00:21 IMPRESSION: 1. Motion partially limits evaluation. 2. No acute intracranial abnormality. No acute infarct. 3. Postsurgical changes are seen in the region of the sella with volume loss within the right aspect of the sella. No obvious sellar or suprasellar mass. 4. Scattered mucosal thickening of the paranasal sinuses. D/ / Yonathan Rabago MD / Yonathan Rabago MD Interpreting Provider: Yonathan Rabago MD <Celestine Silva - Last Filed: 01/23/18 17:41> (1) Chest pain Qualifiers: Chest pain type: unspecified Qualified Code(s): R07.9 - Chest pain, unspecified
[2018-01-23] MEDS: Methocarbamol 500 MG TABLET PO PRN (17:00)
[2018-01-23] MEDS ORDERED: lamoTRIgine 25 MG TABLET PO SCH (21:00)
[2018-01-24] MEDS: *HR* OxyCODONE/APAP 5/325 TABLET PO PRN ×4 (03:40→16:38)
[2018-01-24] MEDS: *HR* Heparin 5,000 UNIT/ML VIAL SQ SCH ×2 (05:05→16:38)
[2018-01-24] MEDS: 0.9 % Sodium Chloride 1,000 ML IVC SCH (05:05)
[2018-01-24 05:14] LABS: Basophils # 0.1 K/mcL (0.0-0.2); Basophils % 0.7 %; Eosinophils # 0.6 K/mcL (0.0-0.6); Eosinophils % 5.8 %; Hematocrit 39.9 % (35.3-44.9); Hemoglobin 13.1 g/dL (11.5-15.4); Immature Granulocytes % 0.5 % (0-4); Lymphocytes # 4.3 K/mcL (0.6-4.6); Mean Corpuscular HGB Conc 32.8 g/dL (31.6-35.5); Mean Corpuscular Hemoglobin 29.6 pg (28.0-33.3); Mean Corpuscular Volume 90.3 fL (83.0-100.0); Mean Platelet Volume 11.9 fL (9.4-12.4); Monocytes # 0.8 K/mcL (0.0-1.3); Monocytes % 7.2 %; Neutrophils # 5.2 K/mcL (1.6-8.9); Platelet Count 312 K/mcL (140-400); Red Blood Count 4.42 M/mcL (3.82-4.97); Red Cell Distribution Width 13.2 % (11.5-14.5); Segmented Neutrophils % 46.8 %
[2018-01-24 05:33] LABS: BUN/Creatinine Ratio 18 (6-26); Blood Urea Nitrogen 12 mg/dL (6-20); Calcium 8.3 mg/dL (8.6-10.3); Carbon Dioxide 21 mEq/L (23-29); Chloride 110 mEq/L (98-107); Glucose 94 mg/dL (70-105); Osmolality,Calculated 286 (280-300); Potassium 3.5 mEq/L (3.5-5.1); Sodium 138 mEq/L (136-145); eGFR For Non-African Americans > 60 (> 60)
[2018-01-24 05:49] LABS: Thyroid Stimulating Hormone 1.362 mcIU/mL (0.340-5.600)
--- NOTE | 2018-01-24 08:09 | Neurology - Consult Note ---
Date of Encounter: 01/24/18 History of Present Illness Chief complaint: Chest pain , neck pain with numbness in right arm HPI: Ms. Rodas is a 42 year old female with past diagnosis of MEN 1 with pituitary tumor/[place] syndrome admitted to [facility] via ED for worsening chest pain and right sided neck pain with numbness and tingling in arm , forearm and hands , neck pain with stiffness and right shoulder pain. She has symptoms in her left hand but less than right side . Vitals : Tem 97.5 , pul 62 , BP 149/77 sat 98% MRI head : No acute intracranial abnormality. No acute infarct. Postsurgical changes are seen in the region of the sella with volume loss within the right aspect of the sella. CT Head :No acute intracranial abnormality.Postsurgical changes of transsphenoidal pituitary surgery CT cervical spine :No acute abnormality of the cervical spine. MRI C spine : awaited I Past Med Surg Social Fam HX - Past Medical History Medical history: fibromyalgia, hypertension, kidney stones, other Additional medical history: Narciso's. MME 1. ovarian cysts Psychiatric history: anxiety, bipolar, depression - Past Surgical History Surgical History: , cholecystectomy Additional surgical history: kidney stones - Social History Smoking Status: Current every day smoker Smokeless Tobacco Status: No Alcohol use: none Drug use: none - Family History Mother Age at : 50 Cause of : "heart stopped" Hx Family Cardiac Disorders: Yes Medications and Allergies 3 Allergy/AdvReac Type Severity Reaction Status Date / Time No Known Allergies Allergy Verified 11/30/16 09:49 All Systems: The remainder of the systems were reviewed and are negative Physical Examination - Vital Signs Vital Signs: Initial Vital Signs Temp Pulse Resp BP Pulse Ox 98.9 F 62 18 153/100 97 01/22/18 17:57 01/22/18 17:57 01/22/18 17:57 01/22/18 17:57 01/22/18 17:57 Results - Laboratory Findings CBC and BMP: 01/24/18 03:54 01/24/18 03:54 Abnormal lab findings: Abnormal lab results PT 12.5 Seconds (9.4-12.1) H 01/22/18 17:18 Chloride 110 mEq/L (98-107) H 01/24/18 03:54 Carbon Dioxide 21 mEq/L (23-29) L 01/24/18 03:54 Calcium 8.3 mg/dL (8.6-10.3) L 01/24/18 03:54 Free T4 0.61 ng/dl (0.70-2.00) L 01/24/18 03:54 PTH Intact 101.3 pg/ml (10.0-65.0) H 01/24/18 03:54 Consult Discharge Plan - Plan Referrals: Cedrick Armijo MD [Primary Care Provider] -
[2018-01-24] MEDS ORDERED: Orphenadrine 60 MG/2 ML VIAL IVP ONE (11:58)
--- NOTE | 2018-01-24 14:25 | Neurology Progress Note ---
Date of Encounter: 01/24/18 Time of Encounter: 08:25 Assessment and Plan (1) Muscle spasms of neck Current Visit: Yes Status: Acute Patient was been complaining of significant pain spasms of her neck radiating to the right upper extremities difficulty in turning her neck [id number] having significant spasms of the neck muscles she likely has underlying degenerative changes or perhaps she may have underlying disc disease that may be causing her symptoms certainly these significant neck muscle spasm can cause cervicogenic headaches. Symptoms seems to be more of radicular in nature. Already had a CT scan of the cervical spine that was reported as negative she may benefit from MRI of the cervical spine to give more detailed information. In the meantime can try muscle relaxers and perhaps pain medication further recommendation will depend on the result of MRI (2) History of pituitary adenoma Current Visit: Yes Status: Acute MRI of the brain did not show any other acute abnormality she did have a history of resection overall stable from imaging standpoint (3) Neck pain on right side Current Visit: Yes Status: Acute Subjective Interval history: Patient was complaining of significant neck spasm and pain radiating to the right arm difficulty turning her head [id number]. According to the patient's symptoms are present for quite some time but recently getting worse. Initially she was admitted to the chest pain and getting workup for it. Objective - Constitutional Vitals: Temp Pulse Resp BP Pulse Ox 98.0 F 49 18 135/87 95 01/24/18 12:39 01/24/18 12:39 01/24/18 12:39 01/24/18 12:39 01/24/18 12:39 - Neurological Exam Sensorimotor examination: Present: intact Motor Examination: Present: grossly full strength in all extremities Sensation intact: Present: intact Reflex and gait examination: intact Reflexes: Biceps: 1+, Triceps: 1+, Brachioradialis: 1+, Patella: 1+, Achilles: 0 Mental Status Examination: Present: awake, alert, oriented to person, oriented to place, follows commands appropriately, answers questions appropriately Cranial nerve examination: Present: PERRL, EOMI, visual conley intact Results - Laboratory Findings CBC and BMP: 01/24/18 03:54 01/24/18 03:54 Abnormal lab findings: Abnormal lab results PT 12.5 Seconds (9.4-12.1) H 09/09/18 17:18 Chloride 110 mEq/L (98-107) H 01/24/18 03:54 Carbon Dioxide 21 mEq/L (23-29) L 01/24/18 03:54 Calcium 8.3 mg/dL (8.6-10.3) L 01/24/18 03:54 Free T4 0.61 ng/dl (0.70-2.00) L 01/24/18 03:54 PTH Intact 101.3 pg/ml (10.0-65.0) H 01/24/18 03:54 - Diagnostic Findings Additional findings: MRI Of the brain shows Motion partially limits evaluation. 2. No acute intracranial abnormality. No acute infarct. 3. Postsurgical changes are seen in the region of the sella with volume loss within the right aspect of the sella. No obvious sellar or suprasellar mass. 4. Scattered mucosal thickening of the paranasal sinuses. CT of the cervical spine negative for any acute abnormality Consult Discharge Plan - Plan Referrals: Cedrick Armijo MD [Primary Care Provider] -
--- NOTE | 2018-01-24 14:42 | Neurology - Consult Note ---
Date of Encounter: 01/24/18 Time of Encounter: 08:35 Assessment and Plan (1) Muscle spasms of neck Current Visit: Yes Status: Acute Patient was been complaining of significant pain spasms of her neck radiating to the right upper extremities difficulty in turning her neck [id number] having significant spasms of the neck muscles she likely has underlying degenerative changes or perhaps she may have underlying disc disease that may be causing her symptoms certainly these significant neck muscle spasm can cause cervicogenic headaches. Symptoms seems to be more of radicular in nature. Already had a CT scan of the cervical spine that was reported as negative she may benefit from MRI of the cervical spine to give more detailed information. In the meantime can try muscle relaxers and perhaps pain medication further recommendation will depend on the result of MRI (2) History of pituitary adenoma Current Visit: Yes Status: Acute Imaging studies of the brain did not show any other acute abnormality there is no area of of new tumor reported postsurgical changes noted do not think that reason for her neck pain and the headache (3) Neck pain on right side Current Visit: Yes Status: Acute Cora complaining of significant spasms of the neck muscles may benefit from scheduled muscle relaxers if MRI of the cervical spine shows a disc disease perhaps she may need spine consultation or she may get pain management as an outpatient History of Present Illness HPI: Ms. Rodas is a 42 year old female with history of with pituitary tumor, [place] syndrome s/p resection, presented for worsening chest pain and right sided neck and shoulder pain. Her chest pain became worse today with shortness of breath, nausea, near syncope, confusion and palpitations - Patient is getting cardiac workup and continued to have this neck pain which is radiating to the right side of her arm so neurology service is been consulted In ED, vitals stable. Troponins negative and no acute changes on EKG. Right neck and shoulder achy pain radiate into arms with coldness, numbness and tingling in bilateral hands - started 4 weeks ago. Chest pain sharp started 2 weeks ago and became worse pressure after hit her with elbow with moving furniture one week ago. Daily intractable headaches with lightheaded, vertigo , and blurred vision. 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 Past Med Surg Social Fam HX - Past Medical History Medical history: fibromyalgia, hypertension, kidney stones, other Additional medical history: [place]'s. MME 1. ovarian cysts Psychiatric history: anxiety, bipolar, depression - Past Surgical History Surgical History: , cholecystectomy Additional surgical history: kidney stones - Social History Smoking Status: Current every day smoker Smokeless Tobacco Status: No Alcohol use: none Drug use: none - Family History Mother Age at : 50 Cause of : "heart stopped" Hx Family Cardiac Disorders: Yes Medications and Allergies ALPRAZolam [Xanax 1 MG Tablet] 1 mg PO TID PRN 01/24/18 [History] Albuterol Sulfate [Proair Hfa] 2 puff IH Q4H PRN 01/24/18 [History] Escitalopram [Lexapro] 10 mg PO DAILY 01/24/18 [History] Lisinopril-HCTZ 10-12.5 [Prinzide 10-12.5] 1 tab PO DAILY 01/24/18 [History] Lurasidone [Latuda] 20 mg PO DAILY 01/24/18 [History] lamoTRIgine [Lamictal] 25 mg PO HS 01/24/18 [History] 3 Allergy/AdvReac Type Severity Reaction Status Date / Time No Known Allergies Allergy Verified 11/30/16 09:49 All Systems: The remainder of the systems were reviewed and are negative Physical Examination - Vital Signs Vital Signs: Initial Vital Signs Temp Pulse Resp BP Pulse Ox 98.9 F 62 18 153/100 97 01/22/18 17:57 01/22/18 17:57 01/22/18 17:57 01/22/18 17:57 01/22/18 17:57 - Constitutional General appearance: comfortable - Neurologic Sensorimotor examination: intact Detailed motor examination: grossly full strength in all extremities Detailed sensory examination: intact Reflexes: Biceps: 1+, Triceps: 1+, Brachioradialis: 1+, Patella: 0, Achilles: 0 Mental Status Examination: awake, alert, oriented to person, oriented to place, oriented to time, follows commands appropriately, answers questions appropriately, follows simple commands, localizes noxious stimulation Cranial nerve examination: PERRL, EOMI, visual conley intact, no dysarthria Cerebellar examination: no dysmetria Results - Laboratory Findings CBC and BMP: 01/24/18 03:54 01/24/18 03:54 Abnormal lab findings: Abnormal lab results PT 12.5 Seconds (9.4-12.1) H 01/22/18 17:18 Chloride 110 mEq/L (98-107) H 01/24/18 03:54 Carbon Dioxide 21 mEq/L (23-29) L 01/24/18 03:54 Calcium 8.3 mg/dL (8.6-10.3) L 01/24/18 03:54 Free T4 0.61 ng/dl (0.70-2.00) L 01/24/18 03:54 PTH Intact 101.3 pg/ml (10.0-65.0) H 01/24/18 03:54 - Diagnostic Findings Additional findings: MRI of brain showed Motion artifacts, 2. No acute intracranial abnormality. No acute infarct. 3. Postsurgical changes are seen in the region of the sella with volume loss within the right aspect of the sella. No obvious sellar or suprasellar mass. 4. Scattered mucosal thickening of the paranasal sinuses. CT of the cervical spine was negative Consult Discharge Plan - Plan Referrals: Cedrick Armijo MD [Primary Care Provider] -
[2018-01-24 16:32] VITALS: BP 155/80
--- NOTE | 2018-01-24 16:32 | Discharge Summary ---
<Celestine Silva - Last Filed: 01/24/18 18:03> - NOTES TO OUTPATIENT PROVIDER Notes to Outpatient Provider: - Follow-up with continuing education dean Dr. Whitten at the [facility] as an outpatient for MEN1. -Follow up with neurosurgeon Dr Eloy Fonseca at [facility], once a year for pituitary adenomas. - Follow up with neurologist for results on MRI CT cervical spine. Date of Encounter: 01/24/18 Time of Encounter: 11:00 - Discharge Diagnosis (1) Chest pain Priority: Primary Status: Acute Qualifiers: Chest pain type: unspecified Qualified Code(s): R07.9 - Chest pain, unspecified (2) MEN 1 syndrome Priority: Secondary Status: Acute (3) Neck pain on right side Priority: Secondary Status: Acute (4) Bipolar 1 disorder Priority: Secondary Status: Acute (5) Anxiety Priority: Secondary Status: Acute Hospital course: Ms. Rodas is a 42 year old female past medical history of bipolar disorder, MEN1 , status post multiple transsphenoidal pituitary surgeries who was admitted to the floor because of non-radiating chest, neck and shoulder pain. Patient's initial workup was negative for any ST-T changes, troponins were negative, stress test was negative for any ischemic changes. Patient also underwent head CT which was negative for any mass effect, intracranial lesions. Her CT of the cervical spine was unremarkable, but MRI Cervical Spine showed right posterior paracentral C4-5 disc protrusion causing mild spinal canal stenosis, and mild right C5 neural foraminal narrowing. She has been instructed to follow-up with a neurologist as an outpatient. Meanwhile, patient has been advised to take her muscle relaxers and pain medications for pain control. Patient has been instructed to follow-up with her primary care doctor if she needs more pain control. - Time Spent with Patient Total time spent providing and/or coordinating discharge services: - Discharge Medications Prescriptions: Methocarbamol [Robaxin] 500 mg PO Q8HR PRN #42 tablet PRN Reason: Muscle Spasm HydrOXYzine 10 mg PO TID PRN #30 tablet PRN Reason: Anxiety Oxycodone HCl/Acetaminophen [Endocet 5-325 Tablet] 1 each PO DAILY 2 Days #2 tablet Home Medications: ALPRAZolam [Xanax 1 MG Tablet] 1 mg PO TID PRN 01/24/18 [History] Albuterol Sulfate [Proair Hfa] 2 puff IH Q4H PRN 01/24/18 [History] Escitalopram [Lexapro] 10 mg PO DAILY 01/24/18 [History] HydrOXYzine 10 mg PO TID PRN #30 tablet 01/24/18 [Rx] Lisinopril-HCTZ 10-12.5 [Prinzide 10-12.5] 1 tab PO DAILY 01/24/18 [History] Lurasidone [Latuda] 20 mg PO DAILY 01/24/18 [History] Methocarbamol [Robaxin] 500 mg PO Q8HR PRN #42 tablet 01/24/18 [Rx] Oxycodone HCl/Acetaminophen [Endocet 5-325 Tablet] 1 each PO DAILY 2 Days #2 tablet 01/24/18 [Rx] lamoTRIgine [Lamictal] 25 mg PO HS 01/24/18 [History] Allergies/Adverse Reactions: 3 Allergy/AdvReac Type Severity Reaction Status Date / Time No Known Allergies Allergy Verified 11/30/16 09:49 Date of admission: 01/22/18 18:59 Primary care physician: Cedrick Armijo MD Consults: 01/23/18 13:56 Consult to [facility] [CONS] Stat Reason for SW Consult: needs help with medicare to pay for Pesirectidie . Potential discharge today 01/23/18 15:57 Consult to Neurology [CONS] Routine Consulting Provider: [facility] Reason for Consult: neck and shoulder pain Call Completed: Yes - Constitutional Vitals: Temp Pulse Resp BP Pulse Ox 98.0 F 49 18 135/87 95 01/24/18 12:39 01/24/18 12:39 01/24/18 12:39 01/24/18 12:39 01/24/18 12:39 General appearance: Present: cooperative, mild distress, A&O X 3, obese, answers questions appropriately Exam: as below - Head Head exam: Present: atraumatic, normal inspection, normocephalic - Neck Additional comments: tender to palpation, non raditing pain - Respiratory Respiratory exam: Present: CTAB (no rales, ronchi or wheezing) - Cardiovascular Cardiovascular exam: Present: RRR, +S1, +S2 - GI/Abdominal Additional comments: non-tender, non distended , no guarding or rebound tenderness - Patient Status Disposition: Home, Self-Care Condition: Good Functional capacity at discharge: independent ambulation Overall status at discharge: patient is progressing back to baseline - Discharge Instructions Follow Up With: [facility] [Provider Group] (An appointment has been requested. The office will contact you at home to schedule an appointment. ) [facility] [Provider Group] (An appointment has been requested. The office will contact you at home to schedule an appointment. ) Cedrick Armijo MD [Primary Care Provider] - (An appointment has been requested at this time. ) Forms: ED Satisfaction Letter Additional Instructions: - Follow-up with continuing education dean Dr. Whitten at the [facility] as an outpatient for MEN1. -Follow up with neurosurgeon Dr Eloy Fonseca at [facility], once a year for pituitary adenomas. -Follow up with neurologist as an outpatient - Diet and Activity Activity: increase activity as tolerated Diet: diabetic diet, low salt diet <Lukas Atkinson - Last Filed: 01/24/18 18:26> Date of Encounter: 01/24/18 - Discharge Diagnosis (1) Muscle spasms of neck Priority: Primary Status: Acute (2) MEN 1 syndrome Status: Chronic (3) Chest pain Status: Acute Qualifiers: Chest pain type: unspecified Qualified Code(s): R07.9 - Chest pain, unspecified (4) Anxiety Status: Chronic (5) Bipolar 1 disorder Status: Chronic (6) Fibromyalgia Priority: Secondary Status: Chronic (7) Hypertension Priority: Secondary Status: Chronic Qualifiers: Hypertension type: essential hypertension Qualified Code(s): I10 - Essential (primary) hypertension (8) Tobacco abuse Priority: Secondary Status: Chronic Hospital course: Ms. Rodas is a 42 year old female - Time Spent with Patient Total time spent providing and/or coordinating discharge services: Date of admission: 01/22/18 18:59 Primary care physician: Cedrick Armijo MD Consults: 01/23/18 13:56 Consult to [facility] Fisher [CONS] Stat Reason for SW Consult: needs help with medicare to pay for Pesirectidie . Potential discharge today 01/23/18 15:57 Consult to Neurology [CONS] Routine Consulting Provider: [facility] Reason for Consult: neck and shoulder pain Call Completed: Yes - Constitutional Vitals: Temp Pulse Resp BP Pulse Ox 98.2 F 54 19 155/80 97 01/24/18 16:30 01/24/18 16:30 01/24/18 16:30 01/24/18 16:30 01/24/18 16:30 - Attending Attestation I examined this patient and my medical decision-making was reviewed with the Resident Physician on 01/24/18. I agree with the documented findings, disposition and treatment plan as described except to the extent set forth below. Ms Rodas has been in observation for chest and neck pain. She has hx of MEN 1 and has not been on meds. She had neg stress test and MRI of neck shows mild disc bulge. She will follow up with PCP as outpatient. She was given 2 days of Percocet at discharge Exam alert Comfortable in bed Mucus membranes dry Heart distant No wheeze abd soft Plan D/C home today with outpatient follow up.
[2018-01-24] MEDS: Methocarbamol 500 MG TABLET PO PRN (16:46)
--- NOTE | 2018-01-26 17:43 | Electrocardiograph Report ---
[place] [id number] Test Date: 2018-01-22 Pat Name: Noelle Rodas Department: EXAM5 Room: 3B37 Gender: F [place] Re[place]: : 1975 Requested By: Vj Torres Order Number: [id number] Reading MD: Olinda Penn Measurements Intervals [place] Rate: 59 P: 67 DC: 157 QRS: 12 QRSD: 110 T: 34 QT: 424 QTc: 420 Interpretive Statements Sinus rhythm Low voltage, precordial leads Electronically Signed On 01-26-2018 17:41:53 EDT by Olinda Penn
== END 2018-01-24 18:40 | disposition home or self-care (01) ==
LOC: 3BNU 16:30 → EMEROOARM 16:30 → SUATTDRO 18:59 → 3BNU 20:37
PROVIDERS: ADMIT Family Medicine; ATTEND Internal Medicine

== ENCOUNTER 2019-06-04 16:00 | Observation (INO) ==
[2019-06-04] MEDS ORDERED: Isovue-370 500 ML BOTTLE IVP ONE (16:56)
[2019-06-04] MEDS ORDERED: *HR* FentaNYL (PF) 100 MCG/2 ML VIAL IVP ONE (17:12)
[2019-06-04 17:38] LABS: Basophils # 0.1 K/mcL (0.0-0.2); Basophils % 0.5 %; Eosinophils # 0.5 K/mcL (0.0-0.6); Eosinophils % 4.2 %; Hematocrit 43.3 % (35.3-44.9); Hemoglobin 14.5 g/dL (11.5-15.4); Immature Granulocytes % 0.3 % (0-4); Lymphocytes % 25.1 %; Mean Corpuscular HGB Conc 33.5 g/dL (31.6-35.5); Mean Corpuscular Hemoglobin 29.5 pg (28.0-33.3); Mean Platelet Volume 11.3 fL (9.4-12.4); Monocytes # 0.7 K/mcL (0.0-1.3); Neutrophils # 7.6 K/mcL (1.6-8.9); Platelet Count 343 K/mcL (140-400); Red Blood Count 4.92 M/mcL (3.82-4.97); Red Cell Distribution Width 13.4 % (11.5-14.5); Segmented Neutrophils % 63.9 %; White Blood Count 11.9 K/mcL (4.3-11.1)
[2019-06-04 18:05] LABS: BUN/Creatinine Ratio 18 (6-26); Blood Urea Nitrogen 13 mg/dL (6-20); Calcium 9.1 mg/dL (8.6-10.3); Carbon Dioxide 26 mEq/L (23-29); Chloride 107 mEq/L (98-107); Glucose 82 mg/dL (70-105); Osmolality,Calculated 285 (280-300); Potassium 3.4 mEq/L (3.5-5.1); Sodium 138 mEq/L (136-145); eGFR For African Americans > 60 (> 60); eGFR For Non-African Americans > 60 (> 60)
[2019-06-04] MEDS ORDERED: *HR* OxyCODONE/APAP 5/325 TABLET PO ONE (18:31)
[2019-06-04] MEDS ORDERED: Ampicillin/Sulbactam 3,000 MG in 0.9 % Sodium Chloride 100 ML IVPB ONE (20:17)
[2019-06-04] MEDS ORDERED: Morphine Sulfate 2 MG/ML SYRINGE IVP ONE (20:18)
[2019-06-04] MEDS: Ciprofloxacin/Dex *EAR* Susp 7.5 ML BOTTLE LEFT EAR SCH (20:32)
[2019-06-04] MEDS ORDERED: Naloxone 0.4 MG/ML INJ IVP PRN (21:36)
[2019-06-04] MEDS ORDERED: 0.9 % Sodium Chloride 1,000 ML IVC SCH (21:45)
[2019-06-04] MEDS ORDERED: Ampicillin/Sulbactam 3,000 MG in 0.9 % Sodium Chloride Mini Bag 100 ML IVPB ONE (22:00)
[2019-06-04] MEDS: Ondansetron 4 MG/2 ML VIAL IVP PRN (22:34)
[2019-06-04] MEDS ORDERED: ALPRAZolam 1 MG TABLET PO PRN (23:25)
[2019-06-04] MEDS: lamoTRIgine 25 MG TABLET PO SCH (23:50)
[2019-06-04] MEDS: Ketorolac 30 MG/ML VIAL IVP PRN (23:50)
[2019-06-05] MEDS: Ampicillin/Sulbactam 3,000 MG in 0.9 % Sodium Chloride Mini Bag 100 ML IVPB SCH ×4 (03:47→21:20)
[2019-06-05 06:58] LABS: Basophils # 0.1 K/mcL (0.0-0.2); Basophils % 0.8 %; Eosinophils # 0.3 K/mcL (0.0-0.6); Eosinophils % 3.3 %; Hematocrit 39.8 % (35.3-44.9); Immature Granulocytes % 0.3 % (0-4); Lymphocytes # 2.7 K/mcL (0.6-4.6); Mean Corpuscular HGB Conc 32.7 g/dL (31.6-35.5); Mean Corpuscular Hemoglobin 29.2 pg (28.0-33.3); Mean Corpuscular Volume 89.4 fL (83.0-100.0); Mean Platelet Volume 11.5 fL (9.4-12.4); Monocytes # 0.8 K/mcL (0.0-1.3); Monocytes % 8.7 %; Neutrophils # 5.1 K/mcL (1.6-8.9); Platelet Count 320 K/mcL (140-400); Red Blood Count 4.45 M/mcL (3.82-4.97); Red Cell Distribution Width 13.2 % (11.5-14.5); Segmented Neutrophils % 56.9 %
[2019-06-05 07:18] LABS: BUN/Creatinine Ratio 19 (6-26); Blood Urea Nitrogen 14 mg/dL (6-20); Calcium 8.3 mg/dL (8.6-10.3); Carbon Dioxide 25 mEq/L (23-29); Chloride 106 mEq/L (98-107); Glucose 95 mg/dL (70-105); Osmolality,Calculated 286 (280-300); Potassium 4.1 mEq/L (3.5-5.1); Sodium 138 mEq/L (136-145); eGFR For African Americans > 60 (> 60); eGFR For Non-African Americans > 60 (> 60)
[2019-06-05] MEDS: Lurasidone 20 MG TABLET PO SCH (08:22)
[2019-06-05] MEDS: Ketorolac 30 MG/ML VIAL IVP PRN ×3 (08:23→21:59)
[2019-06-05] MEDS: Ciprofloxacin/Dex *EAR* Susp 7.5 ML BOTTLE LEFT EAR SCH ×2 (12:43→21:20)
[2019-06-05] MEDS: Ondansetron 4 MG/2 ML VIAL IVP PRN (14:39)
[2019-06-05] MEDS: lamoTRIgine 25 MG TABLET PO SCH (21:22)
[2019-06-06] MEDS: Ampicillin/Sulbactam 3,000 MG in 0.9 % Sodium Chloride Mini Bag 100 ML IVPB SCH ×2 (04:09→09:45)
[2019-06-06] MEDS: Ketorolac 30 MG/ML VIAL IVP PRN ×2 (04:09→10:22)
[2019-06-06] MEDS: Ondansetron 4 MG/2 ML VIAL IVP PRN (06:05)
[2019-06-06] MEDS: Lurasidone 20 MG TABLET PO SCH (09:35)
[2019-06-06] MEDS: Ciprofloxacin/Dex *EAR* Susp 7.5 ML BOTTLE LEFT EAR SCH (09:51)
[2019-06-06 10:09] VITALS: BP 114/70
== END 2019-06-06 12:14 | disposition home or self-care (01) ==
LOC: EMEROOARM 16:00 → 3NENU 16:00 → SUATTDRO 21:45 → 3NENU 22:29
PROVIDERS: ADMIT Student in an Organized Health Care Education/Training Program; ATTEND Internal Medicine